=== PATIENT | female | born 1990 | race African-American/Black ===

== ENCOUNTER 2018-06-04 05:37 | Emergency (ER) | payer MEDICAID ==
[~2018-06-04] VITALS: Ht 157.5 cm; Wt 50.0 kg
[2018-06-04] MEDS ORDERED: TETANUS, DIPHTHERIA, PERTUSSIS VAC/PF 0.5ML (>7YR OLD) IM ONE (06:30)
[2018-06-04] MEDS ORDERED: LIDOCAINE HCL/PF 1% 2ML VIAL INFIL ONE (06:30)
[2018-06-04] MEDS ORDERED: LIDOCAINE HCL/PF 1% 10 MG/ML 5ML VIAL IJ ONE (07:00)
[2018-06-04] MEDS ORDERED: BACITRACIN ZINC OINT UDPKT TOP ONE (07:45)
[2018-06-04] MEDS ORDERED: IBUPROFEN 600MG TABLET PO ONE (07:45)
[2018-06-04 08:15] VITALS: BP 98/62
== END 2018-06-04 08:15 | disposition home or self-care (01) ==
LOC: ER 05:37
DX: S61.412A Laceration without foreign body of left hand, initial encounter (principal); S31.821A Laceration without foreign body of left buttock, initial encounter; W18.39XA Other fall on same level, initial encounter; Y93.89 Activity, other specified; Y92.89 Other specified places as the place of occurrence of the external cause; Y99.8 Other external cause status; Z88.6 Allergy status to analgesic agent
CPT/HCPCS: 12002; 81025; 90471; 90715; 99284; J3490